=== PATIENT | female | born 1985 | race Caucasian/White ===

== ENCOUNTER 2021-02-07 13:54 | Outpatient (CLI) | payer SELFPAY ==
--- NOTE | 2021-02-07 14:00 | USCV_ITS ---
Tracy Gannon Age: 35 Gender: F : 1985 Exam Date: 02/07/2021 14:21 Ordering Phys: Helen Templeton NP Technologist: Rosalba Valencia Exam Location: [facility] [place] Indication: edema BP: / HR: 72 Rhythm: Sinus Technical Quality: Good MEASUREMENTS (Male / Female) Normal Values 2D ECHO LV Diastolic Diameter PLAX 4.3 cm 4.2 - 5.9 / 3.9 - 5.3 cm LV Systolic Diameter PLAX 2.7 cm IVS Diastolic Thickness 0.9 cm 0.6 - 1.0 / 0.6 - 0.9 cm IVS Systolic Thickness 1.2 cm LVPW Diastolic Thickness 1.0 cm 0.6 - 1.0 / 0.6 - 0.9 cm LVPW Systolic Thickness 1.6 cm LVOT Diameter 2.0 cm LV Ejection Fraction 2D Teich 68.2 % LV Ejection Fraction MOD 2C 78.9 % LV Ejection Fraction 2C AL 80.4 % LA Diameter 2.7 cm LA Width 3.5 cm LA Height 5.6 cm RA Width 3.2 cm RA Height 4.5 cm Aorta at Sinotubular Diameter 2.7 cm DOPPLER AV Peak Velocity 133.0 cm/s LVOT Peak Velocity 96.0 cm/s AV Area Cont Eq vti 2.5 cm squared AV Area Cont Eq pk 2.4 cm squared MV Peak Velocity 111.0 cm/s MV Area PHT 4.0 cm squared Mitral E to A Ratio 1.6 MV E' Velocity 58.5 cm/s Mitral E to MV E' Ratio 7.9 Mitral E to LV E' Lateral Ratio 8.1 Mitral E to LV E' Septal Ratio 7.8 TR Peak Velocity 87.3 cm/s TR Peak Gradient 3.1 mmHg Right Atrial Pressure 3.0 mmHg Pulmonary Artery Systolic Pressu 6.1 mmHg PV Peak Velocity 87.0 cm/s RV Acceleration Time 0.2 s RV Ejection Time 0.4 s RV AcT/ET 0.4 FINDINGS Left Ventricle Normal left ventricular cavity size. Normal left ventricular systolic function. No regional wall motion abnormalities. Left ventricular ejection fraction is estimated at 68 %. Normal diastolic function. Right Ventricle The right ventricle is normal in size and function. Right Atrium The right atrium is normal in size. Left Atrium The left atrium is normal in size. Mitral Valve Structurally normal mitral valve without significant stenosis or prolapse. There is no mitral regurgitation. Aortic Valve Aortic valve sclerosis. No aortic valve stenosis. Trace aortic valve regurgitation. Tricuspid Valve Structurally normal tricuspid valve without significant stenosis or regurgitation. Pulmonary artery systolic pressure is normal. Pulmonic Valve Structurally normal pulmonic valve without significant stenosis. There is no pulmonic regurgitation. Pericardium Normal pericardium without effusion. Aorta Normal ascending aorta dimension. CONCLUSIONS 1-Normal left ventricular cavity size. Normal left ventricular systolic function. No regional wall motion abnormalities. Left ventricular ejection fraction is estimated at 68 %. Normal diastolic function. 2-There is no pericardial effusion. 3-No significant valve abnormalities. 4-Pulmonary artery systolic pressure is within normal limits. 5-Right atrial pressure is around 5 mm of mercury. 6-There are no prior echocardiogram studies to compare. Haleigh Smith MD (Electronically Signed) Final Date: 07 February 2021 21:07 S
== END 2021-02-07 13:55 | disposition home or self-care (01) ==
LOC: RAD 13:56
PROVIDERS: Visit Provider Nurse Practitioner Family
DX: R60.9 Edema, unspecified (principal)
CPT/HCPCS: 93306